=== PATIENT | female | born 1990 | race Two or more races ===

== ENCOUNTER 2017-05-10 07:23 | Inpatient (IN) | payer SELFPAY ==
[2017-05-10] MEDS ORDERED: LIDOCAINE 1% 300 MG/30 ML SDV ONE (08:04)
[2017-05-10] MEDS ORDERED: OLIVE OIL 118 ML BTL ONE (08:04)
[2017-05-10] MEDS ORDERED: TERBUTALINE SULFATE 1 MG/ML VIAL ONE (08:05)
[2017-05-10] MEDS ORDERED: AMMONIA AROMATIC 1 EACH AMP IH ONE (08:05)
[2017-05-10] MEDS ORDERED: OXYTOCIN 10 UNIT/ML VIAL ONE (08:05)
[2017-05-10] MEDS ORDERED: MISOPROSTOL 200 MCG TAB ONE (08:06)
[2017-05-10] MEDS ORDERED: OLIVE OIL 118 ML BTL MISC PRN (08:09)
[2017-05-10] MEDS ORDERED: LR 1,000 ML IV PRN (08:09)
[2017-05-10] MEDS ORDERED: TERBUTALINE SULFATE 1 MG/ML VIAL IV PRN (08:09)
[2017-05-10] MEDS ORDERED: OXYTOCIN 20 UNIT in LR 1,000 ML IV PRN (08:09)
[2017-05-10] MEDS ORDERED: EPSOM SALT 454 GM TP PRN (08:09)
--- NOTE | 2017-05-10 08:23 | PDGENHP ---
History and Physical - Chief Complaint contractions - History of Present Illness This is a 26yo [id number] with IUP@ approx 39 weeks based on unsure LMP. She denies any care, states her period was sometime around this year. She reports contractions starting around midnight. she states they are getting stronger and closer together. She denies any LOF, VB. She reports +FM. She denies any chest pain, SOB, headaches, visual changes. History Information - Allergies/Home Medication List Allergies/Adverse Reactions: No Known Allergies Allergy (Unverified 11/15/15 11:15) Home Medications: 1 tab PO DAILY 09/29/15 [Last Taken 2 Days Ago ~11/13/15] VITAMIN D 5,000 iunits PO DAILY 11/15/15 [Last Taken 2 Days Ago ~11/13/15] I have personally reviewed and updated: family history, medical history, social history, surgical history Past Medical History: pt denies any h/o HTN, DM, thyroid disease, kidney disease , asthma. - Past Medical History no pertinent PMH - Surgical History Reports: no pertinent surgical hx Additional surgical history: pt denies any surgical history - Family History Positive for: non-pertinent - Social History Smoking Status: Never smoked Alcohol Use: None Drug Use: None Additional social history: no care, FOB not involved. lives with parents. She did not share with her family. Review of Systems Review of Systems: ROS: 10pt was reviewed & negative except for what was stated in HPI & below Constitutional: Reports: no symptoms EENMT: Reports: no symptoms Cardiac: Reports: no symptoms Respiratory: Reports: no symptoms Gastrointestinal: Reports: abdominal pain (contractions since midnight) Genitourinary: Reports: no symptoms Muscolosketal: Reports: no symptoms Skin: Reports: no symptoms Neurological: Reports: no symptoms Hematologic/Lymphatic: Reports: no symptoms Immunologic/Allergy: Reports: no symptoms Physical Exam Physical Exam: Constitutional: no apparent distress, appears nourished Eyes: PERRL Ears, Nose, Mouth, Throat: moist mucous membranes, hearing normal, ears appear normal Cardiovascular: regular rate and rhythym Respiratory: no respiratory distress, no rales or rhonchi Gastrointestinal: soft, non-tender abdomen Skin: warm, normal color Musculoskeletal: full muscle strength Neurologic: AAOx3 Psychiatric: interacting appropriately Assessment & Plan Assessment: [id number] IUP@ approx 39wks No PNC GBS unknown active labor cat 1 FHR tracing Plan: Admit to L&D labs UDS anticipate
[2017-05-10 09:14] LABS: % IMMATURE GRANULYOCYTES 0.5 % (0.0-1.1); ABSOLUTE IMMATURE GRANULOCYTES 0.06 10^3/uL (0.00-0.10); ADD DIFF? NO; ADD MORPH? NO; ADD SCAN? NO; ATYPICAL LYMPHOCYTE FLAG 0 (0-99); FRAGMENT RBC FLAG 0 (0-99); HEMATOCRIT 39.4 % (38.0-47.0); HEMOGLOBIN 14.1 g/dL (12.6-16.3); LEFT SHIFT FLG 0 (0-99); LIPEMIA HEMOLYSIS FLAG 90 (0-99); MEAN CELL HEMOGLOBIN 31.8 pg (27.9-34.1); MEAN CELL HEMOGLOBIN CONCENTR. 35.8 g/dL (32.4-36.7); MEAN CELL VOLUME 88.7 fL (81.5-99.8); MEAN PLATELET VOLUME 11.5 fL (8.7-11.7); PLATELET CLUMPS FLAG 0 (0-99); PLATELET COUNT 218 10^3/uL (150-400); RED BLOOD CELL COUNT 4.44 10^6/uL (4.18-5.33); RED CELL DISTRIBUTION WIDTH 12.5 % (11.5-15.2)
[2017-05-10] MEDS: IBUPROFEN 600 MG TAB PO PRN ×3 (10:59→23:25)
[2017-05-10] MEDS: HYDROCODONE/APAP 5/325 TAB PO PRN ×3 (13:05→21:39)
[2017-05-10] MEDS ORDERED: SIMETHICONE 80 MG TAB CHEW PO PRN (13:49)
[2017-05-10] MEDS ORDERED: HYDROCORTISONE 0.5% CREAM TP PRN (13:49)
[2017-05-10] MEDS ORDERED: ACETAMINOPHEN 325 MG TAB PO PRN (13:49)
--- NOTE | 2017-05-10 13:57 | OBDEL ---
Info Type: Vaginal Presentation at Delivery: Vertex L&D Analgesia/Anesthesia Type: None GBS+: No (unknown GBS) Intrapartum Medications: Generic Name Dose Route Start Last Admin Trade Name Freq PRN Reason Stop Dose Admin Hydrocodone Bitart/Acetaminophen 1 - 2 tab 05/10/17 12:53 05/10/17 13:05 [place] 5/325 PO 05/20/17 12:52 1 tab Q4 PRN Administration Pain, Moderate Ibuprofen 600 mg 05/10/17 08:09 05/10/17 10:59 Motrin PO 11/06/17 08:08 600 mg Q6HRS PRN Administration post , inflammation Discontinued Medications Generic Name Dose Route Start Last Admin Trade Name Freq PRN Reason Stop Dose Admin Oxytocin 20 unit/ Lactated 1,002 mls @ 150 mls/hr 05/10/17 08:09 05/10/17 11: 18 Ringer's IV 1,002 mls PRN PRN Administration Post- bleeding Indications for Delivery: Spontaneous Labor, SROM Vaginal Delivery - Delivery Provider Delivery Physician/CNM: Marguerite Artis - Labor and Delivery Onset of Contractions Date: 05/10/17 Onset of Contractions Time: 00:01 Onset of Contractions Type: Spontaneous Rupture of Membranes Date: 05/10/17 Rupture of Membranes Time: 08:30 Rupture of Membranes Type: Spontaneous Amniotic Fluid Color: Clear Dilation Complete Date: 05/10/17 Dilation Complete Time: 20:00 Placenta Delivery Date: 05/10/17 Placenta Delivery Time: 08:41 Total Hours of Labor: 8 Laceration: 1st Degree Repair: 3-0, Vicryl Vaginal Sponge Count Correct: Yes Vaginal Needle Count Correct: Yes Vaginal Sweep Performed: Yes EBL: 200 Delivery Events: None Data Bruce Delivery Date: 05/10/17 Delivery Time: 08:36 WALTER: 05/03/17 Gestational Age: 41 week(s) and 0 day(s) Sex of : Male [place] Weight (gm): 3314 g Score (1 Min): 9 Score (5 Min): 9 ICD10 Worksheet Patient Problems: Problems Problem Status Onset (spontaneous vaginal delivery) Acute - ICD10 Problem Qualifiers (1) (spontaneous vaginal delivery)
[2017-05-10 17:18] LABS: PHENCYCLIDINE URINE BCH < 6 ng/ml (NEGATIVE); PHENCYCLIDINE URINE BCH NEGATIVE (NEGATIVE); TETRAHYDROCANNABINOL URINE < 5 ng/mL (NEGATIVE); TETRAHYDROCANNABINOL URINE NEGATIVE (NEGATIVE)
[2017-05-10 18:36] VITALS: RESP 16
[2017-05-10 20:19] VITALS: O2SAT 96
[2017-05-10] MEDS: DOCUSATE SODIUM 100 MG CAP PO PRN (21:40)
[2017-05-11] MEDS: DOCUSATE SODIUM 100 MG CAP PO PRN (07:57)
--- NOTE | 2017-05-11 08:14 | OBPP ---
Progress Note Assessment/Plan: Assessment: [id number] s/p PPD#1 no PNC Plan: routine pp care cont / support PRN anticipate d/c home tomorrow 05/11/17 08:12 Subjective/ Course: 05/11/17 08:13 Pt doing well, she denies any heavy bleeding or pain. She is well , no difficulty. She is voiding without difficulty. She denies any depression or sadness. Objective: 05/10/17 08:20 Patient ABO/Rh B POSITIVE 05/10/17 08:20 Temp Pulse Resp BP Pulse Ox 36.0 C 82 16 100/63 96 05/10/17 20:00 05/10/17 20:00 05/10/17 20:00 05/10/17 20:00 05/10/17 20:00 Uterine Position/Fundal Height: Umbilicus -2, Midline Uterine Tone: Firm Physical Exam - Physical Exam EENT: PERRL/EOMI Neck: supple Respiratory: lungs clear, normal breath sounds Cardiac/Chest: regular rate, rhythm Abdomen: non-tender, soft Skin: normal color, warm/dry Neuro/Psych: alert, normal mood/affect, oriented x 3
[2017-05-11] MEDS ORDERED: MEASLES,MUMPS&RUBELLA VACC/PF 0.5 ML VIAL SC ONE ×2 (08:41→11:30)
[2017-05-11 10:17] VITALS: BP 104/70; PULSE 70; TEMP 97.9
--- NOTE | 2017-05-11 11:55 | ASMTCMCOM ---
CM Note CM Note Notes: SW consult requested for MOC due to fact she had no care. Per RN, this is MO second child. Her first is a 14 m/o girl. Met with [facility]. MGM and MOCs 14 m/o Brianne were initially. MGM is Polish speaking only. MOC states that sfter having sex with FOC who is also Annas FOC, she took the morning after pill and an initial test was neg. In March she started to feel that she was . She wasnt clear as to why she chose to not get a prgenancy test or care at that time. She did admit that MGEmil was upset about her first and she did not want to upset him again. She has gotten care in the past at the [facility]. Infant born healthy, utox neg. Per RN, MOC is appropriate with and dtr Brianne. MGM is supportive. MGMerle watches Brianne and will also watch infant when MOC returns to her job at [employer]. [facility] was asked multiple times if she has any concern about MGF. [facility] stated MGEmil has never been abusive to MGM, MOC or her three siblings. She states that MGEmil will get over it. [facility] says MARSHA is concerned about what people will think about her having two children outside of marriage. [facility] asked about financial needs. She lives with her parents in a 4 bedroom home. She helps her father with the rent and he will miss her help while she is on maternity leave. She already receives WIC. She didnt know about [employer] and their help with diapers and supplies. She is DACA and not eligible for Medicare but may qualify for emergency Medicaid. Michelle from [employer] met with [facility] to fill out christian. [facility] had no other needs at this time but was given card to call if needed. Date Signed: 05/11/2017 11:53 AM Electronically Signed By:Ilana Parekh LCSW
== END 2017-05-11 12:30 | disposition home or self-care (01) | DRG 775 ==
LOC: FLD 07:55 → EDSTATUS 08:01 → FOB 16:21
PROVIDERS: ADMIT Advanced Practice Midwife; ATTEND Advanced Practice Midwife
DX: O70.0 First degree perineal laceration during delivery (principal); Z37.0 Single live birth; Z3A.41 41 weeks gestation of pregnancy
CPT/HCPCS: 80307; G0472; G0480; J3105